=== PATIENT | male | born 1950 | race Caucasian/White ===

== ENCOUNTER 2017-08-13 21:00 | Emergency (ER) | payer MEDICARE, OTHER ==
[~2017-08-13] VITALS: Ht 182.9 cm; Wt 76.0 kg
[~2017-08-13 21:00] MED LIST: ALFU10TA2 OR; ALFU10TA2 PO; ATOR80TA41 PO; B-COCAP9 PO; BENA20TA OR; BUDE100T PO; CETI10 PO; DIAZ5 PO; FISH1000 PO; FISH100020 PO; GEMF600T PO; GLUCTAB PO; HYDR12.56 PO; LEVO125T3 PO; METO25 PO; METO50 PO; MULT-65 PO; OMEP20CA5 PO; OMEP20TA PO; PENT1TAB8 PO; PENTAZOCINE; PILO5TAB PO; ST JTAB PO; SYNT100T PO; TAB-TAB PO; TRAM50TA PO; TRAZ50TA4 PO; VICO10TA PO; VITA20002 PO; [UNRECOGNIZED DRUG - CODE] PO; [UNRECOGNIZED DRUG - OTHER] PO
[2017-08-13 21:10] VITALS: BP 146/113; PULSE 114; RESP 16; RESP 22; TEMP 98.9; O2SAT 98; O2SAT 99
[2017-08-13] MEDS ORDERED: SODIUM CHLOR 0.9% 1000 ML INJ 1,000 ML IV ONE (22:00)
[2017-08-13 22:23] LABS: AUTOMATED NEUTROPHIL # 6.5 TH/MM3 (1.8-7.7); BASOPHIL % 0.3 % (0.0-2.0); EOSINOPHIL # 0.1 TH/MM3 (0-0.4); EOSINOPHIL % 0.7 % (0.0-4.0); HEMATOCRIT 41.5 % (39.0-51.0); HEMOGLOBIN 14.4 GM/DL (13.0-17.0); LYMPH % 14.8 % (9.0-44.0); LYMPHOCYTE # 1.3 TH/MM3 (1.0-4.8); MEAN CELL VOLUME 93.1 FL (80.0-100.0); MEAN CORPUSCULAR HEMOGLOBIN 32.3 PG (27.0-34.0); MEAN CORPUSCULAR HGB CONC 34.6 % (32.0-36.0); MEAN PLATELET VOLUME 8.6 FL (7.0-11.0); MONO % 8.7 % (0.0-8.0); MONOCYTE # 0.7 TH/MM3 (0-0.9); NEUT % 75.5 % (16.0-70.0); PLATELET COUNT 290 TH/MM3 (150-450); RED BLOOD COUNT 4.46 MIL/MM3 (4.50-5.90); RED CELL DISTRIBUTION WIDTH 13.4 % (11.6-17.2); WHITE BLOOD COUNT 8.6 TH/MM3 (4.0-11.0)
[2017-08-13 22:49] LABS: BICARBONATE 16.4 MEQ/L (21.0-32.0); CALCIUM 9.8 MG/DL (8.5-10.1); CREATININE 1.46 MG/DL (0.60-1.30)
--- NOTE | 2017-08-13 23:00 | RADRPT ---
EXAM DATE: 08/13/2017 10:51 PM EDT AGE/SEX: 66 years / Male INDICATIONS: Trauma. Fall. CLINICAL DATA: This is the patient's initial encounter. Patient reports that signs and symptoms have been present for 1 day and indicates a pain score of 0/10. MEDICAL/SURGICAL HISTORY: Cardiovascular disease. Hypertension. Renal calculi. GERD Coronary ar allyson stent. RADIATION DOSE: 66.34 CTDI (mGy) COMPARISON: Previous CT of the brain dated 10/15/2015. TECHNIQUE: CT of the head without contrast. Using automated exposure control and adjustment of the mA and/or kV according to patient size, radiation dose was kept as low as reasonably achievable to ob tain optimal diagnostic quality images. 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 Areas of encephalomalacia involving left parietal lobe are also stable. Mild periventricular white matter small vessel ischemic changes are noted. Old lacunar infarct involving the anterior limb of the left internal capsule is stable. Th ere is no acute hemorrhage, acute infarct, midline shift or extra axial fluid collections. The ventri cles, sulci and cisterns are stable. CONCLUSION: 1. No acute infarct, acute hemorrhage, midline shift or extra axial fluid collections. 2. 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 3. Focal area of encephalomalacia involving left parietal lobe which is stable. 4. Mild periventricular white matter small vessel ischemic changes bilaterally. 5. Old lacunar infarct involving the anterior limb of the left internal capsule. Electronically signed by: Jose Higgins MD 08/13/2017 10:59 PM EDT
--- NOTE | 2017-08-13 23:05 | RADRPT ---
EXAM DATE: 08/13/2017 10:52 PM EDT AGE/SEX: 66 years / Male INDICATIONS: Trauma. Fall. CLINICAL DATA: This is the patient's initial encounter. Patient reports that signs and symptoms have been present for 1 day and indicates a pain score of 0/10. MEDICAL/SURGICAL HISTORY: Cardiovascular disease. Hypertension. Renal calculi. GERD Coronar y artery stent. RADIATION DOSE: 19.19 CTDI (mGy) COMPARISON: [facility], CT CERVICAL SPINE W/O CONTRAST, 10/15/2015. . TECHNIQUE: Contiguous axial images were obtained using helical multirow detector technique. The vol umetric data was post-processed with multiplanar reconstruction in oblique axial, sagittal, and coron al planes. Using automated exposure control and adjustment of the mA and/or kV according to patient s ize, radiation dose was kept as low as reasonably achievable to obtain optimal diagnostic quality maria ges. FINDINGS: Vertebrae: Normal vertebral body height. There are mild to moderate degenerative changes involving m id to lower cervical spine. There is disc space narrowing at C5-6. No acute bony fracture. Alignment: Mild anterior subluxation of C3 over C4 by approximately 2 mm. C2-3: The bony spinal canal is normal in size. No evidence of disc bulge or herniation. The neural foramina are bilaterally patent. C3-4: Broad-based bulging with disc osteophyte complex. Narrowing of the neural foramina bilaterally . Bilateral facet arthritis, left greater than right. C4-5: The bony spinal canal is normal in size. No evidence of disc bulge or herniation. . Narrowing of the right neural foramina. There is bilateral facet arthritis, right greater than left. C5-6: Broad-based bulging with disc osteophyte complex. Narrowing of the left neural foramina. The r ight neural foramina appears patent. C6-7: The bony spinal canal is normal in size. No evidence of disc bulge or herniation. The neural foramina are bilaterally patent. Bilateral facet arthritis. C7-T1: The bony spinal canal is normal in size. No evidence of disc bulge or herniation. The neura l foramina are bilaterally patent. Bilateral facet arthritis. CONCLUSION: 1. No acute bony fracture. 2. Mild anterior subluxation of C3 over C4 by 2 mm. 3. Mild to moderate degenerative changes involving the mid to lower cervical spine with disc space n arrowing at C5-6. 4. No significant changes compared to the prior study. Electronically signed by: Patrice Lira MD 08/13/2017 11:03 PM EDT
--- NOTE | 2017-08-14 00:14 | RADRPT ---
EXAM DATE: 08/14/2017 12:07 AM EDT AGE/SEX: 66 years / Male INDICATIONS: Neck pain post fall, follow-up to cat scan done same day. CLINICAL DATA: This is the patient's initial encounter. Patient reports that signs and symptoms have been present for 1 day and indicates a pain score of 6/10. MEDICAL/SURGICAL HISTORY: Cardiovascular disease. Hypertension. Renal calculi. GERD Coronar y artery stent. COMPARISON: No prior [facility] exams available for comparison. FINDINGS: Flexion and extension views of the spine were performed. There is mild anterior subluxation of C3 ov er C4 by approximately 2 mm. This remains fixed on the flexion and extension views. There are degener ative changes involving the cervical spine. There is disc space narrowing at C5-6. No soft tissue swe lling. The bony structures are grossly intact. CONCLUSION: 1. Mild anterior subluxation of C3 over C4 by 2 mm. This remains fixed on the flexion and extension views. 2. Mild to moderate degenerative changes involving the mid to lower cervical spine with disc space n arrowing at C5-6. Electronically signed by: Patrice Lira MD 08/14/2017 12:13 AM EDT
--- NOTE | 2017-08-14 00:33 | PD ---
HPI Chief Complaint: Fall Time Seen by Provider: 21:47 Travel History International Travel<30 days: No Contact w/Intl Traveler<30days: No Traveled to known affect area: No History of Present Illness HPI Is a 66-year-old male brought in by EMS intoxicated. Patient apparently was mowing his grass and drinking alcohol today in the hot heat. He apparently had a mechanical fall when he crosses street to drink with his friends. There is unknown roof reported loss of consciousness. Patient is unable to give history. He does not recall what happened. There are no other complaints at the time of my examination. 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 ) Respiratory: No Myocardial Infarction: Yes Radiation Therapy: Yes Thyroid Disease: Yes Tetanus Vaccination: < 5 Years Influenza Vaccination: Yes Past Surgical History Abdominal Surgery: No Cardiac Surgery: Yes (CARDIAC STENT 1997 & 1999) Coronary Stent: Yes (X3) Ear Surgery: No Endocrine Surgery: No Eye Surgery: No Genitourinary Surgery: Yes (HYDROCELE 1996) Gynecologic Surgery: No Joint Replacement: No Oral Surgery: Yes (ORAL CANCER) Pacemaker: No Thoracic Surgery: No Tonsillectomy: Yes (1965) Other Surgery: Yes Social History Alcohol Use: Yes Tobacco Use: No Substance Use: No Allergies-Medications (Allergen,Severity, Reaction): Coded Allergies: No Known Allergies (Verified , 10/15/15) Reported Meds & Prescriptions Reported Meds & Active Scripts Active Reported Vitamin D-3 (Cholecalciferol) 2 000 Tab 2,000 Unit PO DAILY Hctz (Hydrochlorothiazide) 12.5 Mg Cap 12.5 Mg PO DAILY Gemfibrozil 600 Mg Tab 600 Mg PO BID Pentazocine/Naloxone HCl (Pentazocine W/ Naloxone) 1 Tab Tab 1 Tab PO QID PRN Fish Oil ([place]-3 Fatty Acids) 1,000 Mg Cap 1,200 Mg PO DAILY Super B-Complex (Multivitamins/Folic Acid/Biotin) Complex Cap 1 Cap PO DAILY Diazepam 5 Mg Tab 5 Mg PO BID PRN Tramadol Hcl (Tramadol HCl) 50 Mg Tab 50 Mg PO TIDPRN Cetirizine Hcl 10 Mg Tab 10 Mg PO HSPRN Omeprazole 20 mg (Omeprazole) 20 Mg Tab 20 Mg PO DAILY Alfuzosin Hcl Er (Alfuzosin HCl) 10 Mg Tab 10 Mg PO HS Pilocarpine Hydrochloride (Pilocarpine Hcl (Oral)) 5 Mg Tab 5 Mg PO TID Levothyroxine 125 mcg (Levothyroxine Sodium) 125 Mcg Tab 125 Mcg PO DAILY Bupropion Hcl Sr (Bupropion HCl) 200 Mg Tab 100 Mg PO BID Metoprolol Tartrate 25 mg (Metoprolol Tartrate) 25 Mg Tab 50 Mg PO BID Multivitamin (Multivitamins) 1 Tab Tab 1 Tab PO DAILY Vicodin Hp 10/660 (Acetaminophen/Hydrocodone Bitart) 660 Mg/10 Mg Tab 1 Tab PO TID [Pilocaroine ] 5 Mg PO TID 5 MG TID Trazodone Hcl (Trazodone HCl) 50 Mg Tab 50 Mg PO HS Synthroid (Levothyroxine Sodium) 100 Mcg Tab 125 Mcg PO HS Lipitor 80 Mg Tab (Atorvastatin) 80 Mg Tab 80 Mg PO HS Bupropion Hcl (Bupropion HCl) 100 Mg Tab 100 Mg PO BID Lopressor 50 Mg Tab (Metoprolol Tartrate) 50 Mg Tab 50 Mg PO BID Benazepril Hcl (Benazepril HCl) 20 Mg Tab 20 Mg OR BID [Pentazocine] 1 DAILY UNK DOSE Fish Oil 1,000 Mg Cap 1,200 Mg PO DAILY Aspirin Ec (Aspirin) 81 Mg Tab 81 Mg PO DAILY Zyrtec 10 Mg Tab (Cetirizine HCl) 10 Mg Tab 10 Mg PO HS Prilosec (Omeprazole) 20 Mg Capcr 20 Mg PO DAILY Super B-Complex (Multivitamins/Folic Acid/Biotin) Complex Cap 1 Tab PO DAILY Multi-Vitamin Daily (Multivitamins) Daily Tab 1 Tab PO DAILY Diazepam 5 Mg Tab 5 Mg PO BID Metformin Hcl (Metformin HCl) 500 Mg Tab 500 Mg PO DAILY Alfuzosin Hcl Er (Alfuzosin HCl) 10 Mg Tab 10 Mg OR HS Review of Systems ROS Limitations: Intoxication Except as stated in HPI: all other systems reviewed are Neg Musculoskeletal: Positive: Pain (Abrasion to right lower extremity) Physical Exam Narrative GENERAL: Well-nourished, well-developed patient, in no acute respiratory distress. SKIN: Focused skin assessment warm/dry. HEAD: Normocephalic/atraumatic. EYES: No scleral icterus. No injection or drainage. NECK: Trachea midline. Patient in c-collar mobilization. CARDIOVASCULAR: Regular rate and rhythm without murmurs, gallops, or rubs. RESPIRATORY: Breath sounds equal bilaterally. No accessory muscle use. GASTROINTESTINAL: Abdomen soft, non-tender, nondistended. MUSCULOSKELETAL: No cyanosis, or edema. There is an abrasion to the right knee. NEUROLOGICAL: Awake and intoxicated. Cranial nerves II through XII intact. Motor and sensory grossly within normal limits. Five out of 5 muscle strength in all muscle groups. Slurred speech consistent with intoxication. BACK: Nontender without obvious deformity. No CVA tenderness. Data Data Last Documented VS Vital Signs Date Time Temp Pulse Resp B/P (MAP) Pulse Ox O2 Delivery O2 Flow Rate FiO2 08/13/17 21:10 98.9 114 22 146/113 (124) 98 08/13/17 21:10 Room Air Orders Orders Complete Blood Count With Diff (08/13/17 21:47) Basic Metabolic Panel (Bmp) (08/13/17 21:47) Iv Access Insert/Monitor (08/13/17 21:47) Ecg Monitoring (08/13/17 21:47) Oximetry (08/13/17 21:47) Drug Screen, Random Urine (08/13/17 21:47) Sodium Chlor 0.9% 1000 Ml Inj (Ns 1000 M (08/13/17 22:00) Ct Brain W/O Iv Contrast(Rout) (08/13/17 22:20) Ct Cerv Spine W/O Contrast (08/13/17 22:20) Alcohol (Ethanol) (08/13/17 22:33) Spine, Cervical Fl/Ext Only (08/13/17 ) Labs Laboratory Tests Test 08/13/17 21:00 White Blood Count 8.6 TH/MM3 Red Blood Count 4.46 MIL/MM3 Hemoglobin 14.4 GM/DL Hematocrit 41.5 % Mean Corpuscular Volume 93.1 FL Mean Corpuscular Hemoglobin 32.3 PG Mean Corpuscular Hemoglobin Concent 34.6 % Red Cell Distribution Width 13.4 % Platelet Count 290 TH/MM3 Mean Platelet Volume 8.6 FL Neutrophils (%) (Auto) 75.5 % Lymphocytes (%) (Auto) 14.8 % Monocytes (%) (Auto) 8.7 % Eosinophils (%) (Auto) 0.7 % Basophils (%) (Auto) 0.3 % Neutrophils # (Auto) 6.5 TH/MM3 Lymphocytes # (Auto) 1.3 TH/MM3 Monocytes # (Auto) 0.7 TH/MM3 Eosinophils # (Auto) 0.1 TH/MM3 Basophils # (Auto) 0.0 TH/MM3 CBC Comment DIFF FINAL Differential Comment Blood Urea Nitrogen 29 MG/DL Creatinine 1.46 MG/DL Random Glucose 145 MG/DL Calcium Level 9.8 MG/DL Sodium Level 139 MEQ/L Potassium Level 4.3 MEQ/L Chloride Level 106 MEQ/L Carbon Dioxide Level 16.4 MEQ/L Anion Gap 17 MEQ/L Estimat Glomerular Filtration Rate 49 ML/MIN Ethyl Alcohol Level 241 MG/DL [facility] Medical Decision Making Medical Screen Exam Complete: Yes Emergency Medical Condition: Yes Differential Diagnosis Alcohol intoxication versus metabolic derangement versus head injury Narrative Course 66-year-old male with history of alcohol abuse, presents here after being found intoxicated. Patient apparently fell mechanically. Unsure of loss of consciousness. The patient is intoxicated. CT brain shows no evidence of acute intracranial injury. Cervical spine CT mild subluxation which is seen on previous CT cervical spines. Flexion-extension shows stability of the mild subluxation. Serum alcohol level was 241. On reevaluation at time of discharge , patient is awake alert and appropriate. He understands that he drank too much. He will be discharged with his . He is instructed to decrease his alcohol intake. Diagnosis Primary Impression: Alcohol intoxication Additional Impression: Mechanical fall Additional Instructions: Avoid drinking large amounts of alcohol. Disposition: 01 DISCHARGE HOME Condition: Stable Kojo Nelson MD Aug 14, 2017 00:33
== END 2017-08-14 01:40 | disposition home or self-care (01) ==
LOC: NEPE 21:00
DX: F10.129 Alcohol abuse with intoxication, unspecified (principal); M50.322 Other cervical disc degeneration at C5-C6 level; E78.00 Pure hypercholesterolemia, unspecified; I10 Essential (primary) hypertension; I25.10 Atherosclerotic heart disease of native coronary artery without angina pectoris; K21.9 Gastro-esophageal reflux disease without esophagitis; I25.2 Old myocardial infarction; E07.9 Disorder of thyroid, unspecified; Z79.899 Other long term (current) drug therapy
CPT/HCPCS: 70450; 72040; 72125; 80048; 80307; 85025; 99285; J7030